=== PATIENT | male | born 1990 | race African-American/Black ===

== ENCOUNTER 2019-12-24 17:50 | Emergency (ER) | payer SELFPAY ==
[~2019-12-24] VITALS: Ht 182.9 cm; Wt 80.0 kg
--- NOTE | 2019-12-24 19:25 | NUR ---
PT ROOMED, PLACED VITALS SIGNS MONITORS. ERP AT BEDSIDE FOR EVAL.
[2019-12-24] MEDS ORDERED: ONDANSETRON 2MG/ML, 2ML IVPush ONE (19:30)
[2019-12-24] MEDS ORDERED: MORPHINE SULFATE 4 MG/ML, 1ML ONE (19:30)
[2019-12-24] MEDS ORDERED: ONDANSETRON 2MG/ML, 2ML ONE (19:30)
[2019-12-24] MEDS ORDERED: SODIUM CHLORIDE FLUSH 10ML SYR IVF ONE (19:30)
[2019-12-24] MEDS ORDERED: MORPHINE SULFATE 4 MG/ML, 1ML IVPush PRN (19:30)
[2019-12-24 19:40] LABS: ALANINE AMINOTRANSFERASE 49 U/L (12-78); ALBUMIN 4.2 g/dL (3.4-5.0); ANION GAP 5 mmol/L (5-15); CALCIUM 9.3 mg/dL (8.5-10.1); CHLORIDE 104 mmol/L (98-107); CREATININE 1.37 mg/dL (0.7-1.3)
--- NOTE | 2019-12-24 19:40 | NUR ---
IV PLACED AND MEDICATED PER MAR.
[2019-12-24 19:43] LABS: ALKALINE PHOSPHATASE 61 U/L (45-117); BILIRUBIN,TOTAL 1.6 mg/dL (0.2-1.0); TOTAL PROTEIN 7.7 g/dL (6.4-8.2)
[2019-12-24 19:52] LABS: BASOPHILS # (AUTO) 0.03 x10^3/uL (0-0.1); BASOPHILS % (AUTO) 0 % (0-1); EOSINOPHILS # (AUTO) 0.02 x10^3/uL (0-0.4); EOSINOPHILS % (AUTO) 0 % (1-7); LYMPHOCYTES # (AUTO) 1.87 x10^3/uL (1-3.4); LYMPHOCYTES % (AUTO) 24 % (22-44); MD NO; MEAN CORPUSCULAR HEMOGLOBIN 31.5 pg (27.5-34.5); MEAN CORPUSCULAR VOLUME 92.7 fL (81-97); MEAN PLATELET VOLUME 9.8 fL (7.4-10.4); MONOCYTES # (AUTO) 0.65 x10^3/uL (0.2-0.8); MONOCYTES % (AUTO) 8 % (2-9); NEUTROPHILS # (AUTO) 5.23 x10^3/uL (1.8-6.8); NEUTROPHILS % (AUTO) 67 % (42-75); PLATELET COUNT 166 x10^3/uL (130-400); RED BLOOD COUNT 4.83 x10^6/uL (4.38-5.82); RED CELL DISTRIBUTION WIDTH 13.2 % (9.4-14.8)
--- NOTE | 2019-12-24 20:01 | NUR ---
PT TO CT.
[2019-12-24 20:09] LABS: MICROSCOPIC NOT IND
[2019-12-24 20:14] LABS: CULTURE INDICATED? NO
[2019-12-24] MEDS ORDERED: OMNIPAQUE 350 MG/ML, 100ML BOTTLE ONE (20:20)
[2019-12-24 21:21] VITALS: BP 147/77
== END 2019-12-24 21:32 | disposition home or self-care (01) ==
LOC: ED 20:43
DX: R10.31 Right lower quadrant pain (principal); R19.7 Diarrhea, unspecified
CPT/HCPCS: 36415; 74177; 80053; 81003; 83690; 85025; 96374; 96375; 99285; J2270; J2405; Q9967